=== PATIENT | male | born 1960 | race Caucasian/White ===

== ENCOUNTER → 2019-11-07 | Outpatient (CLI) | payer BC, SELFPAY ==
[~2019-11-07] MED LIST: ALBU90OI INH; CETI5 PO; DICMIS50EC PO; ESOM20 PO; Flonase 0.05% N16 GM; Loratadine10 MG PO; NAPR250 PO; TURMERIC 500 M1 EACH PO; ZYRTEC10 M2 PO
== END | disposition home or self-care (01) ==
LOC: LAB SHORT 18:27 → LAB EV 18:27
DX: J02.9 Acute pharyngitis, unspecified (principal)
CPT/HCPCS: 87081

== ENCOUNTER 2019-12-11 08:28 | Day surgery (SDC) | payer BC ==
[~2019-12-11] VITALS: Ht 182.9 cm; Wt 95.0 kg
[~2019-12-11 08:28] MED LIST changes: -Loratadine10 MG PO
[2019-12-11] MEDS ORDERED: Loratadine10 MG PO (08:43)
--- NOTE | 2019-12-11 10:35 | NUR ---
PT TO RECOVERY POST PROCEDURE. PT AWAKE AND ORIENTED, PLEASENT AND COOPERATIVE. PT DENIES CHEST PAIN/PRESSURE POST PROCEDURE. MONITOR SR 60-70'S, B/P 130/89, AFEBRILE, SPO2 97% RA. R RADIAL SITE NO SWELLING/HEMATOMA, TR BAND IN PLACE.
--- NOTE | 2019-12-11 13:55 | NUR ---
PT AMB TO THE BATHROOM WITHOUT PROBLEM, GAIT STEADY; SITE UNCHANGED AFTER ACTIVITY. PT DRESSED SELF, SITE UNCHANGED. TR BAND REMOVED, CLOTH DOT AND WRIST IMMOBLILZER APPLIED-IV REMOVED CANNULA INTACT.
--- NOTE | 2019-12-11 14:03 | NUR ---
PT AND RECEIVED DISCHARGE INSTRUCTIONS, MED LIST AND "AFTER CARE" INSTRUCTIONS, VERBALIZED GOOD UNDERSTANDING. PT LEFT FACILITY VIA W/C, CONDITION STABLE.
== END 2019-12-11 14:03 | disposition home or self-care (01) ==
LOC: MHTC 08:28
PROC: B205YZZ Plain Radiography of Left Heart using Other Contrast (ICD-10-PCS; principal; 2019-12-11)
PROC: B201YZZ Plain Radiography of Multiple Coronary Arteries using Other Contrast (ICD-10-PCS; principal; 2019-12-11)
PROC: 4A023N7 Measurement of Cardiac Sampling and Pressure, Left Heart, Percutaneous Approach (ICD-10-PCS; principal; 2019-12-11)
DX: I35.0 Nonrheumatic aortic (valve) stenosis (principal); I25.119 Atherosclerotic heart disease of native coronary artery with unspecified angina pectoris; K21.9 Gastro-esophageal reflux disease without esophagitis; M19.90 Unspecified osteoarthritis, unspecified site; F17.210 Nicotine dependence, cigarettes, uncomplicated; Z79.899 Other long term (current) drug therapy; Z68.28 Body mass index [BMI] 28.0-28.9, adult
CPT/HCPCS: 76937; 93454; 99152; 99153; C1769; C1894; J1644; J2250; J3010; J7030; Q9967

== ENCOUNTER 2019-12-23 21:15 | Emergency (ER) | payer BC ==
[~2019-12-23] VITALS: Ht 182.9 cm; Wt 92.1 kg
[~2019-12-23 21:15] MED LIST changes: +Loratadine10 MG PO
[2019-12-23] MEDS ORDERED: Aspir 8181 MG PO (21:33)
[2019-12-23] MEDS ORDERED: ROSU5 (21:33)
[2019-12-23 21:35] LABS: BASOPHILS ABSOLUTE AUTO 0.02 K/mm3 (0.00-0.23); BASOPHILS PERCENT AUTO 0 % (0-2); EOSINOPHILS ABSOLUTE AUTO 0.32 K/mm3 (0.00-0.68); EOSINOPHILS PERCENT AUTO 3 % (0-6); Hematocrit 48.2 % (37.0-53.0); Hemoglobin 16.3 g/dL (13.5-17.5); IMMATURE GRAN ABSOLUTE AUTO 0.02 K/mm3 (0.00-0.10); IMMATURE GRAN PERCENT AUTO 0 % (0-1); LYMPHOCYTES ABSOLUTE AUTO 3.28 K/mm3 (0.84-5.20); LYMPHOCYTES PERCENT AUTO 34 % (21-46); MONOCYTES ABSOLUTE AUTO 0.73 K/mm3 (0.16-1.47); MONOCYTES PERCENT AUTO 8 % (4-13); Mean Corpuscular HGB 29.1 pg (26.0-34.0); Mean Corpuscular HGB Conc 33.8 g/dL (31.5-36.5); Mean Corpuscular Volume 86 fL (80-100); Mean Platelet Volume 10.5 fL (9.1-12.4); NEUTROPHILS ABSOLUTE AUTO 5.26 K/mm3 (1.96-9.15); NEUTROPHILS PERCENT AUTO 55 % (41-73); Platelet Count 280 K/mm3 (150-400); RDW Coefficient Variation 13.2 % (11.7-14.2); RDW Standard Deviation 41.6 fL (35.1-46.3); White Blood Cell Count 9.63 K/mm3 (4.00-11.30)
[2019-12-23 21:55] LABS: Alanine Aminotransfer (ALT/SGP 54 U/L (12-78); Albumin, Blood 4.2 g/dL (3.4-5.0); Albumin/Globulin Ratio 1.2 (0.8-1.8); Alk Phos 147 U/L (50-136); Anion Gap 5 mmol/L (6-16); Aspartate Aminotrans (AST/SGOT 42 U/L (12-37); Bilirubin, Total 0.3 mg/dL (0.1-1.0); Blood Urea Nitrogen 15 mg/dL (8-24); Bun/Creatinine Ratio 13.6 (12.0-20.0); CO2, Blood 30 mmol/L (21-32); Calcium, Blood 9.4 mg/dL (8.5-10.1); Chloride, Blood 105 mmol/L (98-108); Globulin, Blood 3.6 g/dL (2.2-4.0); Glomerular Filtration Rate >60 (60-); Glucose, Blood 96 mg/dL (70-99); Potassium, Blood 3.7 mmol/L (3.5-5.5); Sodium, Blood 140 mmol/L (136-145); Total Protein, Blood 7.8 g/dL (6.4-8.2); Troponin I <0.015 ng/mL (0.000-0.040)
== END 2019-12-24 01:13 | disposition home or self-care (01) ==
LOC: ER 21:15
PROVIDERS: Physician Assistant
DX: R07.2 Precordial pain (principal); F17.210 Nicotine dependence, cigarettes, uncomplicated; I25.10 Atherosclerotic heart disease of native coronary artery without angina pectoris; Z79.899 Other long term (current) drug therapy
CPT/HCPCS: 36415; 71046; 80053; 84484; 85025; 93005; 93010; 96374; 96375; 99285-25; J2270; J2405

== ENCOUNTER 2022-11-09 10:55 | Day surgery (SDC) | payer BC ==
[~2022-11-09] VITALS: Ht 182.9 cm; Wt 95.0 kg
[~2022-11-09 10:55] MED LIST changes: +ASCO500 PO; +Aspir 8181 MG PO; +FISH OIL 1,2001 EAC7 PO; +ROSU5 PO
--- NOTE | 2022-11-09 15:07 | NUR ---
pt lying in bed resting. so at bedside. yoselyn ling used.
--- NOTE | 2022-11-09 15:46 | NUR ---
PLAVIX SCRIPT CALLED INTO [facility]. PT SAT UP IN BED. FEMORAL SITE SOFT AND NON-TENDER PER PT. NO BLEEDING NOTED. DR BERRY AT BEDSIDE DISCUSSING PROCEDURE AND PLAN OF CARE W/ PT AND .
--- NOTE | 2022-11-09 15:57 | NUR ---
PT GIVEN COFFE AND SANDWICH PER REQUEST. PT SITTING UP IN BED. NO BLEEDING AT FEMORAL SITE. SITE SOFT AND NON-TENDER.
--- NOTE | 2022-11-09 17:08 | NUR ---
PT GIVEN DC INSTRUCTIONS AND VERBALZIED UNDERSTANDING. IV OUT. SITES SOFT AND NON-TENDER. NO BLEEDING NOTED. PT TAKEN TO LBY VIA WC BY PALOMO ALLAN. PT TO BE TAKEN HOME BY .
== END 2022-11-09 23:58 | disposition home or self-care (01) ==
LOC: MHTC 10:55
DX: I70.213 Atherosclerosis of native arteries of extremities with intermittent claudication, bilateral legs (principal); Z87.891 Personal history of nicotine dependence
CPT/HCPCS: 76937; 85347; 99152; 99153; A9270; C1714; C1725; C1760; C1769; C1884; C1887; C1894; C2623; J1644; J2250; J2997; J3010; J7030; J7040; Q9967

== ENCOUNTER → 2023-03-13 | Outpatient (CLI) | payer BC | END | disposition home or self-care (01) | LOC: LAB 15:37 → LAB SHORT 15:37 | DX: K21.9 Gastro-esophageal reflux disease without esophagitis (principal) | CPT/HCPCS: 87338 ==

== ENCOUNTER → 2023-08-06 | Outpatient (CLI) | payer BC | END | disposition home or self-care (01) | LOC: LAB SHORT 16:16 → LAB 16:16 | DX: L03.116 Cellulitis of left lower limb (principal) | CPT/HCPCS: 87070; 87077; 87147; 87186; 87205 ==

== ENCOUNTER → 2024-06-18 | Outpatient (CLI) | payer BC | END | disposition home or self-care (01) | LOC: LAB SHORT 18:08 → LAB 18:08 | DX: M25.562 Pain in left knee (principal) | CPT/HCPCS: 84550 ==